=== PATIENT | male | born 1965 | race Caucasian/White ===

== ENCOUNTER 2023-12-22 20:19 | Observation (INO) | payer OTHER, SELFPAY ==
[2023-12-22] VITALS (7 sets, daily range): BP systolic 104–142; BP diastolic 54–112; BMI 37.2; BMI 35.9
[2023-12-22 16:44] LABS: Glucose - Point of Care > 600 mg/dl (70-99)
[2023-12-22 16:52] LABS: % Basophils 0.4 % (0-2); % Eosinophils 1.2 % (0-6); % Immature Granulocytes 0.3 % (0-0.5); % Lymphocytes 26.6 % (20.5-51.1); % Monocytes 5.5 % (1.7-9.3); Absolute Eosinophils 0.1 10^3/uL (0-0.7); Absolute Lymphocytes 2.8 10^3/uL (1.2-3.4); Absolute Monocytes 0.6 10^3/uL (0.1-0.6); Absolute Neutrophils 6.8 10^3/uL (1.4-6.5); Hematocrit 46.1 % (39.0-52.0); Hemoglobin 15.4 g/dL (13.0-18.0); Mean Corp Hgb Conc. 33.4 g/dL (33.0-37.0); Mean Corpuscular Hgb 30.1 pg (27.0-31.0); Mean Corpuscular Volume 90.2 fL (80.0-94.0); Mean Platelet Volume 11.4 fL (7.4-10.4); Nucleated Red Blood Cells % 0 % (-); Platelet Count 292 10^3/uL (130-400); Red Blood Cell Count 5.11 10^6/uL (4.70-6.10); Red Cell Dist. Width 13.9 % (11.5-14.5); White Blood Cell Count 10.3 10^3/uL (4.8-10.8)
[2023-12-22 16:54] LABS: Urine Albumin Trace (Neg - Trace); Urine Bilirubin Negative (Negative); Urine Character Clear (Clear); Urine Color Yellow; Urine Glucose 3+ (Negative); Urine Ketone 2+ (Negative); Urine Leukocyte Negative (Negative); Urine Nitrite Negative (Negative); Urine Occult Blood Negative (Negative); Urine Urobilinogen Negative (Neg - 1+)
--- NOTE | 2023-12-22 17:03 | ED.GENMED ---
History of Present Illness
General
Chief Complaint: Weakness
Source: patient
Exam Limitations: none
Time Seen by Provider: 12/22/23 16:43
Nursing documentation reviewed up to this point in time: agreed with
Travel History
Have you had any contact with someone who has COVID-19?: No
Do you have any symptoms of coronavirus? Fever > 100 degrees, chills, cough, shortness of breath, sore throat, loss of taste or smell, muscle aches, or headache?: No
History of Present Illness
History of Present Illness:
58-year-old male with past medical history of fgd-[id number] diabetes high cholesterol smoker COPD presents to the ER for evaluation. For the past several days since Sunday he has had a headache dry mouth increased urination feels dizzy.
He did vomit yesterday. Triage note also that he has not had a bowel movement in 3 days. He is a type II diabetic and does not check his sugars.
Review of Systems
Review of Systems
Allergies reviewed?: Yes
All Other Systems: ROS reviewed and negative except as documented in HPI and ROS
Constitutional: Reports no symptoms; Denies fever, fatigue or chills
Respiratory: Reports no symptoms
Cardiac: Reports no symptoms
ABD/GI: Reports nausea and vomiting
Musculoskeletal: Reports no symptoms
Skin: Reports no symptoms
Neurological: Reports headache
Endocrine: Reports polyuria and polydipsia
Psychiatric: Reports no symptoms
Phy Exam
General Physical Exam
General Presentation: no apparent distress
General age: appears stated age
General Skin: dry
General Habitus: normal
General Mental: alert
Cardiovascular Exam
Cardiovascular Exam: regular rate/rhythm, no murmur and normal peripheral pulses
Pulmonary Exam
Pulmonary Exam: lungs clear and no respiratory distress
Neurological Exam
Neurological Exam: alert and oriented x3
Musculoskeletal Exam
Musculoskeletal Exam: full ROM
Skin Exam
Skin Exam: normal color and warm/dry
Psychiatric Exam
Psychiatric Exam: normal mood/affect
Course
Orders/Labs/Results
Orders:
Orders
12/22/23 16:31
EKG [Electrocardiogram (*1)] Urgent
Reason for Study: Fatigue / Weakness
12/22/23 16:32
EKG- Treatment ONCE
12/22/23 16:44
B-Hydroxybutyrate Urgent
Comment: ADD ON
COVID-19 Antigen Urgent
Source: Nasal Swab
Complete Blood Count/With Diff Urgent
Comprehensive Metabolic Panel Urgent
Urinalysis Reflex To Culture Urgent
Date Specimen was Collected: 12/22/23
Time Specimen was Collected: 16:38
Influenza A+B Rapid Molecular Urgent
ALDAIR Source: Nasal Swab
Specimen Description:
12/22/23 17:47
0.9% Sodium Chloride 1000 ml [Nss] 1,000 ml IV BOLUS
12/22/23 17:51
Add On- LAB Urgent
Tests Added?: betahydroxybutrate
12/22/23 18:07
Insulin Aspart [NOVOLOG vial] 10 units SC NOW STA
Abnormal Lab Results
12/22/23 12/22/23
16:42 16:44
MPV 11.4 H fL
(7.4-10.4)
Absolute Neuts (auto) 6.8 H 10^3/uL
(1.4-6.5)
Sodium 129 L mmol/L
(135-145)
Potassium 5.2 H mmol/L
(3.5-5.1)
Chloride 96 L mmol/L
(98-107)
Glucose 892 H* mg/dl
(70-99)
Alkaline Phosphatase 142 H U/L
(38-126)
Urine Ketones 2+ A
(Negative)
Urine Glucose 3+ A
(Negative)
POC Glucose > 600 H* mg/dl
(70-99)
12/22/23 16:44
12/22/23 16:44
Vital Signs
Initial and Last Documented VS:
Initial Vital Signs
Temp Pulse Resp Pulse Ox
97.9 F 95 16 99
12/22/23 16:11 12/22/23 16:11 12/22/23 16:11 12/22/23 16:11
Last Documented Vital Signs
Temp Pulse Resp BP Pulse Ox
97.9 F 84 18 104/92 94
12/22/23 16:11 12/22/23 17:30 12/22/23 17:30 12/22/23 17:00 12/22/23 17:30
Chore Worker consulted with Physician
Chore Worker consulted with physician?: Yes
Name of Physician Consulted: kiara
MDM/Problems Addressed
Differential Diagnosis Includes:
not limited to: Hyperglycemia, dehydration electrolyte abnormality
MDM/Problems Addressed:
Patient is a type II diabetic who presents today for generalized weakness increased thirst headache dizzy increased urination did vomit yesterday. Patient presents with an elevated glucose of 892. Sodium 129 however corrected 142. Gap is 11.
Patient denies any recent fever chills patient presents awake alert no acute distress. Case was ED physician normal saline fluids ordered 10 units of subcu nodule and insulin ordered. pt will require admission.
Chronic conditions affecting care:
IDDM (currently on glimepiride does not check sugars )
*Pulse Oximetry
Patient hypoxic: no
*EKG
Interpreted by ED Provider?: Yes
Interpretation: normal
Comparison EKG: no comparison EKG present
Heart Rate: 80
Rate: normal
Rhythm: sinus
Ischemia: no ischemia
*Critical Care Note
Total Time (30-74mins, 75-104mins- exclusive of procedures): Not Applicable
ED Attending Note
-
Portions of this chart may have been created with voice recognition software.� Occasional wrong word or��sound alike� substitutions may have occurred due to the inherent limitations of voice recognition software.
Discharge Plan
Departure
Patient Disposition: Admit
Date of Disposition: 12/22/23
Time of Disposition: 18:19
Admit to: Med/Surg
Admit to doctor: hospitalist
Presentation/result/management discussed w/ accepting MD/DO: Hospitalist
Patient with high blood pressure during this ER visit?: No
Condition: Fair
Covid-19: Not Applicable
Discharge Problem:
Acute hyperglycemia
Prescriptions:
No Action
atorvastatin 20 mg Tablet
20 mg PO DAILY
meloxicam 15 mg Tablet
15 mg PO DAILY
glimepiride 2 mg Tablet
2 mg PO DAILY
aspirin 81 mg Tablet,Chewable
81 mg PO DAILY
alfuzosin 10 mg Tablet Extended Release 24 Hr
10 mg PO DAILY
Referrals:
Chu Hitchcock PA-C [Family Provider] -
Interventions
Interventions:
*Risk Screen - Suicide Last Done: 12/22/23 16:11
*General Assessment Last Done: 12/22/23 16:26
*Neglect/Abuse Screening Last Done: 12/22/23 16:11
ED- Fall Risk Assessment Last Done: 12/22/23 16:31
*ED COVID-19 Vaccine History Last Done: 12/22/23 16:11
ED- Cardiac Assessment Last Done: 12/22/23 16:49
ED- Neurological Assessment Last Done: 12/22/23 16:49
ED- Pulmonary Assessment Last Done: 12/22/23 16:49
[2023-12-22 17:08] LABS: ALT (SGPT) 32 U/L (0-50); AST (SGOT) 23 U/L (17-59); Alkaline Phosphatase 142 U/L (38-126); Blood Urea Nitrogen 20 mg/dl (9-20); COVID-19 Antigen Negative (Negative); Calcium 9.6 mg/dl (8.4-10.2); Carbon Dioxide 22 mmol/L (22-30); Chloride 96 mmol/L (98-107); Estimated Creatinine Clearance > 125 ml/min; Potassium 5.2 mmol/L (3.5-5.1); Sodium 129 mmol/L (135-145); Total Bilirubin 0.8 mg/dl (0.2-1.3); eGFR > 60.00
[2023-12-22 17:48] LABS: Glucose 892 mg/dl (70-99)
[2023-12-22] MEDS: NSS 1000 IV ×2 (17:55→20:16)
[2023-12-22] MEDS: NOVOLOG vial 10 UNITS SC (18:25)
[2023-12-22 18:28] LABS: B-Hydroxybutyrate 1.91 mmol/L (0.02-0.27)
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
[2023-12-22 20:01] LABS: Glucose - Point of Care 508 mg/dl (70-99)
[2023-12-22 20:21] LABS: Venous Blood Gas B.E. 0.7 mmol/L (-4 to +4); Venous Blood Gas HCO3 27.5 mmol/L (22-27); Venous Blood Gas O2 Sat % 67.1 %; Venous Blood Gas pCO2 51 mmHg (35-48); Venous Blood Gas pH 7.34 (7.32-7.43); Venous Blood Gas pO2 37 mmHg (30-50)
[2023-12-22 20:39] LABS: Blood Urea Nitrogen 19 mg/dl (9-20); Calcium 9.7 mg/dl (8.4-10.2); Carbon Dioxide 22 mmol/L (22-30); Chloride 99 mmol/L (98-107); Estimated Creatinine Clearance > 125 ml/min; Glucose 569 mg/dl (70-99); Magnesium 2.3 mg/dl (1.6-2.3); Potassium 4.1 mmol/L (3.5-5.1); Sodium 132 mmol/L (135-145); eGFR > 60.00
[2023-12-22 20:40] LABS: Osmolality Serum 313 mOsm/kg (275-300)
[2023-12-22 21:06] LABS: TSH 0.81 uIU/ml (0.47-4.68)
[2023-12-22 21:11] LABS: Glucose - Point of Care 542 mg/dl (70-99)
[2023-12-22 21:50] LABS: Glucose 495 mg/dl (70-99)
[2023-12-22] MEDS: KCL 20 MEQ PO (22:20)
[2023-12-22] MEDS: NOVOLOG FLEXPEN 12 UNITS SC (22:21)
[2023-12-22] MEDS: TUMS 1 TABLET PO (22:40)
[2023-12-23] MEDS: NSS 1000 IV ×3 (00:32→07:58)
[2023-12-23 00:39] LABS: Glucose - Point of Care 350 mg/dl (70-99)
[2023-12-23] MEDS: LANTUS 0.149999999999999994 UNITS SC (00:41)
[2023-12-23 01:14] LABS: Blood Urea Nitrogen 16 mg/dl (9-20); Calcium 8.9 mg/dl (8.4-10.2); Carbon Dioxide 24 mmol/L (22-30); Chloride 105 mmol/L (98-107); Estimated Creatinine Clearance > 125 ml/min; Glucose 349 mg/dl (70-99); Potassium 3.8 mmol/L (3.5-5.1); Sodium 132 mmol/L (135-145); eGFR > 60.00
[2023-12-23] MEDS: NOVOLOG FLEXPEN 10 UNITS SC (01:24)
[2023-12-23 03:25] VITALS: BP 124/76
[2023-12-23 03:46] LABS: Glucose - Point of Care 277 mg/dl (70-99)
[2023-12-23 06:00] VITALS: BMI 36.4
[2023-12-23 06:03] LABS: Hematocrit 41.3 % (39.0-52.0); Hemoglobin 14.2 g/dL (13.0-18.0); Mean Corp Hgb Conc. 34.4 g/dL (33.0-37.0); Mean Corpuscular Hgb 30.7 pg (27.0-31.0); Mean Corpuscular Volume 89.4 fL (80.0-94.0); Mean Platelet Volume 11.1 fL (7.4-10.4); Platelet Count 258 10^3/uL (130-400); Red Blood Cell Count 4.62 10^6/uL (4.70-6.10); Red Cell Dist. Width 13.7 % (11.5-14.5); White Blood Cell Count 10.1 10^3/uL (4.8-10.8)
[2023-12-23] MEDS: OCEAN, SALINE MIST 1 SPRAYS NASAL (06:22)
[2023-12-23 06:26] LABS: ALT (SGPT) 26 U/L (0-50); AST (SGOT) 22 U/L (17-59); Albumin 3.6 g/dl (3.5-5.0); Alkaline Phosphatase 112 U/L (38-126); Blood Urea Nitrogen 14 mg/dl (9-20); Calcium 9.3 mg/dl (8.4-10.2); Carbon Dioxide 26 mmol/L (22-30); Chloride 103 mmol/L (98-107); Estimated Creatinine Clearance > 125 ml/min; Glucose 248 mg/dl (70-99); HDL Cholesterol 29 mg/dl; Potassium 4.3 mmol/L (3.5-5.1); Sodium 138 mmol/L (135-145); Total Bilirubin 0.6 mg/dl (0.2-1.3); Total Cholesterol 149 mg/dl (50-199); Total Protein 6.4 g/dl (6.3-8.2); eGFR > 60.00
[2023-12-23 06:35] LABS: Triglyceride 465 mg/dl (10-149)
[2023-12-23 06:59] LABS: LDL Cholesterol, Direct 72 mg/dl
[2023-12-23 07:00] VITALS: BP 116/66
[2023-12-23 08:05] LABS: Glucose - Point of Care 345 mg/dl (70-99)
[2023-12-23] MEDS: LOW STRENGTH ASPIRIN 81 MG PO (08:08)
[2023-12-23] MEDS: FLOMAX 0.400000000000000022 MG PO (08:08)
[2023-12-23] MEDS: LIPITOR 20 MG PO (08:10)
[2023-12-23] MEDS: NOVOLOG FLEXPEN-MODERATE RESISTANCE 7 UNITS SC ×2 (08:13→12:15)
[2023-12-23 08:42] LABS: Glycohemoglobin (HgbA1c) 16.9 % (4.0-5.6)
--- NOTE | 2023-12-23 10:26 | W.PN.HOSP.TC ---
Today's Communication/Plan
-
started insulin
nurse educator
Cardio consult
follow BMP
check Troponin
Assessment / Plan
Assessment / Plan
IMPRESSION:The patient is a 58-year-old male with PMH significant for NIDDM, who was taking Glimepiride in the past, never been on insulin, presents to ED due to several days of headache, dry mouth, increased urinary frequency, and dizziness. He
vomited yesterday once that he attributes to 'mixing foods'. He also has constipation x 3 days. Glucose in ED was 892. He is also c/o sore dry throat that has worsened over the past 1 week, and he notes he is currently getting worked up outpatient
for multiple symptoms. He smokes 1 to 1.5 packs cigarettes daily, and is pending an outpatient CT scan chest and CT neck. Unclear if he's seen ENT. He denies fever, no MCKEON, no LOC, no current vomiting, no dysuria. He says that he use to have acute
drops in his blood sugars as low as 30.
ED txt: 10 units SQ insulin, 1 L NS
#Hyperglycemia, uncontrolled type 2 DM, concern for HHS. Ketonuria, 3+ glucose, corrected Na is normal 142; Beta hydroxybutyrate 1.91, AG 11, CO2 22, Glucose came down to 508 after 10 u SQ insulin. No history of insulin use.
-admit tele
-was receiving IVF NS at 250 mL per hour, pt now complaining of SOB with CP. Will stop IVF and follow BMP
-HgA1C 16.9!!!!!
-TSH 0.81
-nurse educator consult
chest pain with sob at rest
sob improved when pt sat up
he has been receiving NS at 250 cc/hr, stopped IVF and chest pain with sob has resolved
EKG - normal
Troponin ordered, to be done shortly. Pt with significant risk factors for CAD
Hyponatremia better with improved glu control
129-->132-->138
# Pharyngeal erythema/sore
-discuss outpatient vs inpatient management in the morning pending glucose control
-will likely need ENT consultation OP if not already set up by PCP (he has CT neck and chest pending OP per patient)
#Tobacco abuse-1 to 1.5 ppd for 44 years
-smoking cessation
-he declines nicotine patch at this time
#BPH
-Alfuzosin
#HLD
-Atorvastatin
DVT proph-Lovenox
Full Code
will change status to full admit
Anticipated Discharge: 24 - 48 hours
Subjective/Interval History
-
Date of Service: December 23, 2023
Pt expresses sob with substernal heaviness
Objective Data
-
Labs:
Laboratory Results
12/23/23 12/23/23 12/23/23
00:48 05:39 11:00
WBC 10.1
Hgb 14.2
Hct 41.3
Plt Count 258
Sodium 132 L 138 Pending
Potassium 3.8 4.3 Pending
Chloride 105 103 Pending
Carbon Dioxide 24 26 Pending
BUN 16 14 Pending
Creatinine 0.7 0.6 L Pending
Glucose 349 H 248 H Pending
Calcium 8.9 9.3 Pending
Total Bilirubin 0.6
AST 22
ALT 26
Alkaline Phosphatase 112
Vital Signs:
Vital Signs
Temp Pulse Resp BP Pulse Ox
98.4 F 65 16 116/66 97
12/23/23 07:00 12/23/23 07:00 12/23/23 07:00 12/23/23 07:00 12/23/23 07:00
I&O
12/22/23 12/23/23 12/24/23
06:59 06:59 06:59
Intake Total 480 / 480
Output Total 400 / 400
Balance -400 / -400 480 / 480
Review of Systems
-
History Source: Patient and Coordinated Provider
Constitutional: Denies Fever
EENT: Reports No Symptoms Reported
Respiratory: Reports Trouble Breathing; Denies Wheezing
Cardiac: Reports Chest Pain (substernal heaviness)
Abdomen/GI: Reports No Symptoms
Physical Exam
-
General: Well Developed, Well Nourished, No Apparent Distress and Obese (very large)
HEENT: Normocephalic, Atraumatic and Moist Mucous Membranes
Respiratory: Clear to Auscultation (totally clear); Negative Wheezes, Rales or Rhonchi
Cardiac: Regular Rhythm and S1/S2
GI: Soft, Nontender and Nondistended
Musculoskeletal: No Clubbing, No Cyanosis and No Edema
Skin: Warm and Dry
Neuro: Awake, Alert and Oriented
Psych: Calm
[2023-12-23 11:00] VITALS: BP 154/76
[2023-12-23 11:21] LABS: Blood Urea Nitrogen 14 mg/dl (9-20); Calcium 9.2 mg/dl (8.4-10.2); Carbon Dioxide 22 mmol/L (22-30); Chloride 107 mmol/L (98-107); Estimated Creatinine Clearance > 125 ml/min; Glucose 333 mg/dl (70-99); Potassium 4.4 mmol/L (3.5-5.1); Sodium 133 mmol/L (135-145); eGFR > 60.00
[2023-12-23 11:27] LABS: Troponin I < 0.012 ng/ml
[2023-12-23 11:37] LABS: Glucose - Point of Care 307 mg/dl (70-99)
--- NOTE | 2023-12-23 14:45 | CON.CAR ---
Consultation
Consultation Request
Date/Time Consultation Requested: 12/23/2023 at 1050 am
Date/Time Consultation Performed: 12/23/2023 at 1130 am
Requesting Provider: Abhilash Matias
Performing Provider: Varinder Farley DO
Reason for Consultation: SOB, CP
Medical History
-
Chief Complaint: Thirst, anorexia, polyuria, dizziness
History of Present Illness:
Patient is a 58-year-old male with a past medical history significant for diabetes mellitus type 2, tobacco use disorder (1 pack/day greater than 40 years), obesity, hypercholesterolemia, chronic pain who presents due to headache, dry mouth,
polyuria, and dizziness. Patient was admitted noted to have a glucose of 892 with an A1c greater than 16. Patient treated appropriately for hyperglycemia. Patient reported nasal congestion and sore throat which moved to his chest causing mild
shortness of breath and chest tightness while laying flat. He notes that while sitting up or with activity he does not experience any of the symptoms. Patient denies any chest pain shortness of breath lightheadedness, dizziness, near-syncope,
syncope, PND, orthopnea, edema or weakness. Patient denies any chest pain or shortness of breath with activity or exertion. Patient reports that the tightness he experiences is improved with sitting up and worse while laying flat. Unknown family
history due to adoption. Patient is a chronic active tobacco user 1 pack/day greater than 40 years, former alcohol, no illicits. Patient denies any prior cardiovascular evaluation or testing.
Past Medical History
Past Medical History: Hypercholesterolemia and NIDDM
Past Surgical History: Other (Orthopedic; left knee repair, hernia repair)
Social History
Tobacco: Smoker (1 pack/day greater than 40 years)
Alcohol: Former
Drug: None
Personal: Partner
Living: With Family
Family History
Family History: Adopted
Allergies / Home Medications
Allergy/AdvReac Type Severity Reaction Status Date / Time
Penicillins Allergy Rash Verified 12/22/23 16:47
Medication Instructions Recorded Confirmed Type
alfuzosin 10 mg tablet,extended 10 mg PO DAILY INFLAMMATION 12/22/23 12/22/23 History
release 24 hr
aspirin 81 mg chewable tablet 81 mg PO DAILY Blood Clot 12/22/23 12/22/23 History
Prevention/Tx
atorvastatin 20 mg tablet 20 mg PO DAILY High Cholesterol 12/22/23 12/22/23 History
glimepiride 2 mg tablet 2 mg PO DAILY Diabetes 12/22/23 12/22/23 History
meloxicam 15 mg tablet 15 mg PO DAILY Pain 12/22/23 12/22/23 History
Review of Systems
-
History Source: Patient
All other systems: Negative unless noted
EENT: Other (Nasal congestion)
Respiratory: Cough and Trouble Breathing
Cardiac: Chest Pain (Laying flat, with congestion and cough)
Abdomen/GI: No Symptoms
: No Symptoms
Musculoskeletal: No Symptoms
Skin: No Symptoms
Neurological: No Symptoms
Endocrine: No Symptoms
Hematologic/Lymphatic: No Symptoms
Physical Exam
Vital Signs
Temp Pulse Resp BP Pulse Ox
97.9 F 70 16 154/76 95
12/23/23 11:00 12/23/23 11:00 12/23/23 11:00 12/23/23 11:00 12/23/23 11:00
Lab Results
12/23/23 05:39
12/23/23 10:48
Troponin I < 0.012 ng/ml 12/23/23 10:48
Physical Exam
General: Well Developed, Well Nourished, No Apparent Distress, Comfortable and Other (Obese)
HEENT: Normocephalic, Anicteric and Moist Mucous Membranes
Respiratory: Rhonchi and Non Labored Respirations
Cardiac: S1/S2, Regular Rhythm and Other (No murmur, rub, or gallop)
GI: Soft, Non Tender, Non Distended and Normal Bowel Sounds
Musculoskeletal: No Clubbing, No Cyanosis and No Edema
Skin: Warm and Dry
Neuro: AO x 3 and Nonfocal/Grossly Intact
Psych: Calm
Impression / Plan
-
PCP: Chu Hitchcock
Skip Tender: None
Assessment:
*Chest pain, atypical, no further episodes
� Troponin negative x 1, EKG sinus rhythm without ST-T abnormality
� No prior cardiovascular evaluation
� Risk factors include obesity, dyslipidemia, tobacco use disorder
� Chest pain (tightness, substernal) laying flat with nasal congestion, single episode while admitted; no chest pain with activity or exertion
*Diabetes mellitus type 2 without insulin, poorly controlled
� A1c greater than 16, admission glucose greater than 800
� On glimepiride only
*Mixed dyslipidemia, on statin therapy
� Unclear lipid profile
*Tobacco use disorder, continuous
� 1 pack/day greater than 40 years
*Arthritis, stable
Recommendations:
� 2D echocardiogram to assess cardiac size, shape, function, and valvular anatomy in the setting of atypical type chest pain
� Trend troponin x 3 every 6 hours
� Lipid profile to reassess overall cardiovascular status; remains on atorvastatin 20 mg daily
� Diabetes and chronic medical condition management and treatment per primary service
� Complete tobacco cessation
� Would avoid/discontinue NSAID such as meloxicam to avoid cardiovascular risk
� Two-view chest x-ray in the setting of cough, shortness of breath
� Repeat EKG in a.m.
Data Reviewed
-
EKG: Tracing Personally Visualized and interpreted (Sinus rhythm no ST-T abnormality)
Labs: Labs Reviewed by me
Total Time Spent with Patient (in minutes): 55
[2023-12-23 15:00] VITALS: BP 142/66
--- NOTE | 2023-12-23 16:17 | CM ---
IA completed.
Patient lives with girlfriend in a 2 story home with 4 steps to enter.
Patient independent prior to admission.
Patient has a cane.
Patient drives and works.
Observation form completed.
no hx VN.
PCP: Svetlana sharma
Pharmacy: [facility]
Plan: home no needsN
[2023-12-23 17:42] LABS: Glucose - Point of Care 291 mg/dl (70-99)
[2023-12-23] MEDS: NOVOLOG FLEXPEN-MODERATE RESISTANCE 5 UNITS SC (18:14)
[2023-12-23] MEDS: LOVENOX 40 MG SC (18:14)
[2023-12-23 19:20] VITALS: BP 120/72
[2023-12-23 19:31] LABS: Troponin I < 0.012 ng/ml
[2023-12-23] MEDS: TUMS 1 TABLET PO (20:27)
[2023-12-23 21:48] LABS: Glucose - Point of Care 266 mg/dl (70-99)
[2023-12-23] MEDS: LANTUS 0.200000000000000011 UNITS SC (23:04)
[2023-12-23 23:29] VITALS: BP 121/62
[2023-12-23 23:58] LABS: Troponin I < 0.012 ng/ml
[2023-12-24 03:15] VITALS: BP 151/60
[2023-12-24 06:00] VITALS: BMI 36.8
[2023-12-24 07:18] LABS: Glucose - Point of Care 319 mg/dl (70-99)
[2023-12-24 07:23] LABS: Troponin I < 0.012 ng/ml
[2023-12-24 07:43] VITALS: BP 126/67
[2023-12-24] MEDS: LOW STRENGTH ASPIRIN 81 MG PO (07:49)
[2023-12-24] MEDS: FLOMAX 0.400000000000000022 MG PO (07:49)
[2023-12-24] MEDS: LIPITOR 20 MG PO (07:49)
[2023-12-24] MEDS: NOVOLOG FLEXPEN-MODERATE RESISTANCE 7 UNITS SC (07:50)
--- NOTE | 2023-12-24 07:55 | W.PN.HOSP.TC ---
Today's Communication/Plan
-
Increase insulin Lantus and add NovoLog. Monitor blood sugars.
Assessment / Plan
Assessment / Plan
Physical exam:
General: Well Developed, Well Nourished and No Apparent Distress
HEENT: Normocephalic, Atraumatic and Moist Mucous Membranes
Respiratory: Clear to Auscultation; Negative Wheezes, Rales or Rhonchi
Cardiac: Regular Rhythm and S1/S2
GI: Soft, Nontender and Nondistended
Musculoskeletal: No Clubbing, No Cyanosis and No Edema
Neuro: Awake, Alert and Oriented
Psych: Calm
A/P:
IMPRESSION:The patient is a 58-year-old male with PMH significant for NIDDM, who was taking Glimepiride in the past, never been on insulin, presents to ED due to several days of headache, dry mouth, increased urinary frequency, and dizziness. He
vomited yesterday once that he attributes to 'mixing foods'. He also has constipation x 3 days. Glucose in ED was 892. He is also c/o sore dry throat that has worsened over the past 1 week, and he notes he is currently getting worked up outpatient
for multiple symptoms. He smokes 1 to 1.5 packs cigarettes daily, and is pending an outpatient CT scan chest and CT neck. Unclear if he's seen ENT. He denies fever, no MCKEON, no LOC, no current vomiting, no dysuria. He says that he use to have acute
drops in his blood sugars as low as 30.
ED txt: 10 units SQ insulin, 1 L NS
#Hyperglycemia, uncontrolled type 2 DM, concern for HHS. Ketonuria, 3+ glucose, corrected Na is normal 142; Beta hydroxybutyrate 1.91, AG 11, CO2 22, Glucose came down to 508 after 10 u SQ insulin. No history of insulin use.
-Off IV fluids
-HgA1C 16.9!!!!!
-TSH 0.81
-water conservation specialist consult also diabetes ONLINE MERCHANDISER evaluation today
-His blood sugars are still elevated today on 12/23 and they are as high as 285 and 319 so they need to be better controlled before discharge. Discussed with patient the need for insulin upon discharge and he is agreeable although not convinced
which ones to take at home yet so we discussed several options and will revisit again tomorrow.
-Added NovoLog 10 units of insulin before each meal
-Increase Lantus 20 to 25 units today
-Continue insulin sliding scale
-Monitor blood sugars over the next 24 hours and if improving plan to discharge over the next 24 hours
chest pain with sob at rest
sob improved when pt sat up
he has been receiving NS at 250 cc/hr, stopped IVF and chest pain with sob has resolved
EKG - normal
Troponin ordered, to be done shortly. Pt with significant risk factors for CAD
Discussed with cardiology today on 12/23 and they will sign off and continue to monitor as outpatient
Hyponatremia better with improved glu control
129-->132-->138--> sodium back down to 133 but blood sugars also still elevated
# Pharyngeal erythema/sore
-OP ENT consultation if not already set up by PCP (he has CT neck and chest pending OP per patient)
#Tobacco abuse-1 to 1.5 ppd for 44 years
-smoking cessation
-he declines nicotine patch at this time
#BPH
-Alfuzosin
#HLD
-Atorvastatin
DVT proph-Lovenox
Full Code
Anticipated Discharge: Within 24 hours
Subjective/Interval History
-
Date of Service: December 24, 2023
Patient denies any chest pain. Patient blood sugars are still elevated although somewhat improved.
Objective Data
-
Labs:
Laboratory Results
12/24/23
06:50
Sodium Pending
Potassium Pending
Chloride Pending
Carbon Dioxide Pending
BUN Pending
Creatinine Pending
Glucose Pending
Calcium Pending
Vital Signs:
Vital Signs
Temp Pulse Resp BP Pulse Ox
97.6 F 82 16 126/67 94
12/24/23 07:43 12/24/23 07:43 12/24/23 07:43 12/24/23 07:43 12/24/23 07:43
I&O
12/23/23 12/24/23 12/25/23
06:59 06:59 06:59
Intake Total 1080 / 1080
Output Total 400 / 400
Balance -400 / -400 1080 / 1080
[2023-12-24 08:09] LABS: Blood Urea Nitrogen 13 mg/dl (9-20); Calcium 9.5 mg/dl (8.4-10.2); Carbon Dioxide 21 mmol/L (22-30); Chloride 103 mmol/L (98-107); Estimated Creatinine Clearance > 125 ml/min; Glucose 286 mg/dl (70-99); HDL Cholesterol 31 mg/dl; Potassium 4.6 mmol/L (3.5-5.1); Sodium 133 mmol/L (135-145); Total Cholesterol 157 mg/dl (50-199); eGFR > 60.00
[2023-12-24 08:19] LABS: Triglyceride 462 mg/dl (10-149)
[2023-12-24 08:40] LABS: LDL Cholesterol, Direct 80 mg/dl
--- NOTE | 2023-12-24 11:04 | PN.DE.MGMTRT ---
Insulin Management
- -
12/24/2023: Diabetes Management Consult
58-year-old male who p/w headache, dry mouth, polyuria, and dizziness.
PMH includes: HTN, HLD, Obesity, tobacco use disorder (1 pack/day greater than 40 years), chronic pain and T2DM. 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
Glucose on admission was 892, A1C 16.9%, Cr 0.5, eGFR >60. States that he previously had a glucose monitor but he is not sure if he still has it.
Glucose has remained elevated, FBG 219 this AM, premeal 291 to 319, receiving 5-7 units of corrective insulin.
Current regimen includes Lantus 20 units and corrective insulin only.
Will start NovoLog AC- 10 units, Metformin 500mg BID and increase Lantus to 25 units @ HS. Cont low corrective with meals
Pt was offered a new meter, declined stating that he could not afford the supplies and that his GF has already purchased a new glucose meter from [employer] and he is comfortable with monitor use at home
Pt will need insulin instructions before discharge
Diabetes History
- -
Type of Diabetes: 2 requiring insulin
Pre-Admission Diabetes Regimen
12/23/23 12/24/23
10:48 06:50
Creatinine 0.5 L 0.5 L
Lab Results
Hemoglobin A1c 16.9 % (4.0-5.6) H 12/23/23 05:39
Insulin Pump Settings
IP Diabetes Regimen
12/23/23 12/23/23 12/23/23
10:48 11:35 17:40
Glucose 333 H
POC Glucose 307 H 291 H
12/23/23 12/24/23 12/24/23
21:47 06:50 07:16
Glucose 286 H
POC Glucose 266 H 319 H
Meal type: Lunch
Meal type: Breakfast
Amount consumed: 100%
Amount consumed: 100%
Patient Education
[2023-12-24 11:10] VITALS: BP 121/66
--- NOTE | 2023-12-24 11:33 | W.PN.CARDCBS ---
Addendum entered and electronically signed by Madison Brennan PA-C 12/24/23 14:54:
Called PCP to obtain copy of stress test, but they do not have any record of stress test. Office is going to check again and call me back to be sure.
Original Note:
Today's Communication / Plan
-
Sign off
Stable cardiology status for discharge
Impression / Plan
-
PCP: Chu Hitchcock
Statue Maker: None
Assessment:
Chest pain, atypical, no further episodes
Diabetes mellitus type 2 without insulin, poorly controlled
Mixed dyslipidemia, on statin therapy
Tobacco use disorder, continuous
Arthritis, stable
Recommendations:
No further chest pain
Troponins have been serially negative
EKG okay
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
No further recommendations
Stable cardiology status for discharge
Will sign off
Discussed with primary service
Progress Note - Statue Maker
Subjective
Date of Service: December 24, 2023
No complaints
Objective
Labs:
12/23/23 05:39
12/24/23 06:50
Labs
Hgb 14.2 g/dL (13.0-18.0) 12/23/23 05:39
Hct 41.3 % (39.0-52.0) 12/23/23 05:39
Plt Count 258 10^3/uL (130-400) 12/23/23 05:39
Sodium 133 mmol/L (135-145) L 12/24/23 06:50
Potassium 4.6 mmol/L (3.5-5.1) 12/24/23 06:50
BUN 13 mg/dl (9-20) 12/24/23 06:50
Creatinine 0.5 mg/dL (0.7-1.3) L 12/24/23 06:50
Glucose 286 mg/dl (70-99) H 12/24/23 06:50
Troponins
12/23/23 12/23/23 12/23/23
10:48 17:03 19:02
Troponin I < 0.012 Cancelled < 0.012
12/23/23 12/24/23
23:19 06:50
Troponin I < 0.012 < 0.012
Vital Signs and I&O:
Vital Signs
Temp Pulse Resp BP Pulse Ox
98.5 F 83 16 121/66 100
12/24/23 11:10 12/24/23 11:10 12/24/23 11:10 12/24/23 11:10 12/24/23 11:10
Vital Signs
Temp Pulse Resp BP Pulse Ox
98.5 F 83 16 121/66 100
12/24/23 11:10 12/24/23 11:10 12/24/23 11:10 12/24/23 11:10 12/24/23 11:10
Intake & Output
12/22/23 12/23/23 12/24/23 12/25/23
06:59 06:59 06:59 06:59
Intake Total 1080 / 1080
Output Total 400 / 400
Balance -400 / -400 1080 / 1080
Physical Exam
Physical Exam
General: Well developed, well nourished in NAD.
Neck: Supple, no JVD, HJR, carotids +2 B/L, no bruits bilaterally.
Heart: Non displaced PMI, RRR, no murmurs, No S3, S4, no rubs.
Lungs: Scattered rhonchi at the bases
Extremities: No clubbing, cyanosis or edema bilaterally.
Neuro: Grossly nonfocal, awake, alert and oriented x3.
--- NOTE | 2023-12-24 12:05 | CARDSERVDEF ---
Echocardiogram with Definity completed after protocol screening completed. Allergies verified.
Patent IV site: _R hand____
IV site flushed with 0.9% NaCl pre and post administration.
Diluted bolus method utilized to enhance visualization of ventricular lovelace.
Total volume given: __2__ mL
Patient tolerated all procedures well without complications.
[2023-12-24] MEDS: NOVOLOG FLEXPEN 10 UNITS SC ×2 (12:39→17:48)
[2023-12-24] MEDS: NOVOLOG FLEXPEN-MODERATE RESISTANCE 5 UNITS SC (12:41)
[2023-12-24 12:42] LABS: Glucose - Point of Care 285 mg/dl (70-99)
[2023-12-24 15:26] LABS: Glucose - Point of Care 231 mg/dl (70-99)
[2023-12-24 15:27] VITALS: BP 125/75
[2023-12-24 17:01] LABS: Glucose - Point of Care 222 mg/dl (70-99)
[2023-12-24] MEDS: NOVOLOG FLEXPEN-MODERATE RESISTANCE 3 UNITS SC (17:48)
[2023-12-24] MEDS: GLUCOPHAGE 500 MG PO (17:49)
[2023-12-24] MEDS: LOVENOX 40 MG SC (17:49)
[2023-12-24 19:12] VITALS: BP 118/62
[2023-12-24 21:48] LABS: Glucose - Point of Care 193 mg/dl (70-99)
[2023-12-24] MEDS: LANTUS 0.25 UNITS SC (22:00)
[2023-12-24 23:00] VITALS: BP 121/57
[2023-12-25 04:40] VITALS: BP 118/52
[2023-12-25 07:10] VITALS: BP 118/56
[2023-12-25 07:13] LABS: Glucose - Point of Care 213 mg/dl (70-99)
[2023-12-25] MEDS: NOVOLOG FLEXPEN 14 UNITS SC ×2 (07:38→12:18)
[2023-12-25] MEDS: NOVOLOG FLEXPEN-MODERATE RESISTANCE 3 UNITS SC ×2 (07:38→12:18)
[2023-12-25] MEDS: GLUCOPHAGE 500 MG PO (07:39)
[2023-12-25] MEDS: LOW STRENGTH ASPIRIN 81 MG PO (07:39)
[2023-12-25] MEDS: LIPITOR 20 MG PO (07:39)
[2023-12-25] MEDS: FLOMAX 0.400000000000000022 MG PO (07:39)
[2023-12-25 07:44] LABS: Blood Urea Nitrogen 10 mg/dl (9-20); Calcium 9.3 mg/dl (8.4-10.2); Carbon Dioxide 23 mmol/L (22-30); Chloride 102 mmol/L (98-107); Estimated Creatinine Clearance > 125 ml/min; Glucose 224 mg/dl (70-99); Potassium 4.1 mmol/L (3.5-5.1); Sodium 133 mmol/L (135-145); eGFR > 60.00
--- NOTE | 2023-12-25 08:52 | W.PN.HOSP.TC ---
Today's Communication/Plan
-
Discharge planning today.
Assessment / Plan
Assessment / Plan
Physical exam:
General: Well Developed, Well Nourished and No Apparent Distress
HEENT: Normocephalic, Atraumatic and Moist Mucous Membranes
Respiratory: Clear to Auscultation; Negative Wheezes, Rales or Rhonchi
Cardiac: Regular Rhythm and S1/S2
GI: Soft, Nontender and Nondistended
Musculoskeletal: No Clubbing, No Cyanosis and No Edema
Neuro: Awake, Alert and Oriented
Psych: Calm
A/P:
#Hyperglycemia, uncontrolled type 2 DM, concern for HHS. Ketonuria, 3+ glucose, corrected Na is normal 142; Beta hydroxybutyrate 1.91, AG 11, CO2 22, Glucose came down to 508 after 10 u SQ insulin. No history of insulin use.
-Off IV fluids
-HgA1C 16.9!!!!!
-TSH 0.81
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
-His blood sugars were still elevated yesterday on 12/23 and they were as high as 285 and 319 so they need to be better controlled before discharge. Discussed with patient the need for insulin upon discharge and he is agreeable although not
convinced which ones to take at home yet so we discussed several options and will revisit again tomorrow. Today on 12/25 blood sugars although elevated they are coming down and this morning blood sugar was 224.
-Yesterday added NovoLog 10 units of insulin before each meal
-Yesterday increased Lantus 20 to 25 units today
-Continue insulin sliding scale
-Monitor blood sugars over the next 24 hours and if improving plan to discharge over the next 24 hours
chest pain with sob at rest
sob improved when pt sat up
he has been receiving NS at 250 cc/hr, stopped IVF and chest pain with sob has resolved
EKG - normal
Troponin ordered, to be done shortly. Pt with significant risk factors for CAD
Discussed with cardiology today on 12/23 and they will sign off and continue to monitor as outpatient
Hyponatremia better with improved glu control
129-->132-->138--> sodium back down to 133 but blood sugars also still elevated
# Pharyngeal erythema/sore
-OP ENT consultation if not already set up by PCP (he has CT neck and chest pending OP per patient)
#Tobacco abuse-1 to 1.5 ppd for 44 years
-smoking cessation
-he declines nicotine patch at this time
#BPH
-Alfuzosin
#HLD
-Atorvastatin
DVT proph-Lovenox
Full Code
Anticipated Discharge: Today
Subjective/Interval History
-
Date of Service: December 25, 2023
Patient feels better overall today. No new complaints. He is agreeable with insulin regimen at home.
Objective Data
-
Labs:
Laboratory Results
12/25/23
06:39
Sodium 133 L
Potassium 4.1
Chloride 102
Carbon Dioxide 23
BUN 10
Creatinine 0.5 L
Glucose 224 H
Calcium 9.3
Vital Signs:
Vital Signs
Temp Pulse Resp BP Pulse Ox
98.0 F 83 18 118/56 94
12/25/23 07:10 12/25/23 07:10 12/25/23 07:10 12/25/23 07:10 12/25/23 07:10
I&O
12/24/23 12/25/23 12/26/23
06:59 06:59 06:59
Intake Total 1080 / 1080 1200 / 1200
Balance 1080 / 1080 1200 / 1200
--- NOTE | 2023-12-25 10:27 | PN.DE.MGMTRT ---
Insulin Management
- -
12/25/2023: Diabetes Management Follow up
Patient admitted w headache, dry mouth, polyuria, and dizziness.
PMH includes: HTN, HLD, Obesity, tobacco use disorder (1 pack/day greater than 40 years), chronic pain and T2DM. 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
Glucose on admission was 892, A1C 16.9%, Cr 0.5, eGFR >60. States that he previously had a glucose monitor but he is not sure if he still has it.
Met with patient at bedside, he is awake, alert & oriented able to participate in discussion regarding diabetes care. He states he has taken injections with nurse supervising and he feels comfortable. Provided printed instructions with pictures
for reference @ home.
Patient requesting DexCom. Will enter RX in ambulatory orders.
He states his GF has purchased the [employer] glucose monitor to use till he gets the DexCom.
Patient received 25 units lantus @ hs, fasting glucose 213. Will increase hs lantus to 28 units. Premeal glucose > 200 yesterday, will increase AC novolog to 14 units.
Diabetes History
- -
Type of Diabetes: 2 requiring insulin
Pre-Admission Diabetes Regimen
12/25/23
06:39
Creatinine 0.5 L
Lab Results
Hemoglobin A1c 16.9 % (4.0-5.6) H 12/23/23 05:39
Insulin Pump Settings
IP Diabetes Regimen
12/24/23 12/24/23 12/24/23
12:40 15:25 17:00
Glucose
POC Glucose 285 H 231 H 222 H
12/24/23 12/25/23 12/25/23
21:45 06:39 07:12
Glucose 224 H
POC Glucose 193 H 213 H
Meal type: Lunch
Meal type: Breakfast
Amount consumed: 100%
Amount consumed: 100%
Patient Education
[2023-12-25 11:05] VITALS: BP 112/56
--- NOTE | 2023-12-25 11:22 | W.DCSUMMARY ---
Discharge Summary
Discharge Data
Date of Admission: 12/22/23
Date of Discharge: 12/25/23
-
Pending Results: No
Hospital Course
Patient 58 years old male history of diabetes mellitus, obesity, hyperlipidemia, chronic pain, presented to the hospital generalized weakness polyuria polydipsia and dizziness and found to have glucose over 800 with a hemoglobin A1c greater than 16.
Patient also has some chest discomfort. Cardiology consulted. Cardiology felt his chest pain was atypical in presentation and no further cardiac testing was recommended and they will have him follow-up as outpatient. In terms of his blood
sugars, he was started on insulin long-acting and short acting along the way with insulin sliding scale. His blood sugars improved from when he came in. He had diabetes education and was stressed importance of tighter blood sugar control. He
agreed to insulin regimen at this time. Further adjustment of his blood sugars will be determined depending on how he does outpatient. He has been discharged on Lantus 28 units and NovoLog 14 units before each meals. Otherwise, patient is
hemodynamically stable and feels back to his baseline.
Discharge duration: 36 minutes
Discharge Plan
-
Patient Disposition: Home (Routine Discharge)
Discharge Diagnosis/Procedures: Diabetes mellitus type 2 with hyperglycemia. Chest pain. Hyperlipidemia.
Diet: Diabetic, Carb Controlled
Activity: As tolerated
Driving Restrictions: As prior to admission
Blood Work: Please PCP to order CBC, BMP within 1 week.
Referrals:
Anayeli Cherry CRNP [Specified Professional Personl] - in one to two weeks
Nevaeh Le MD [Consulting Staff] - in two to four weeks (Diabetes mellitus poorly controlled.)
Chu Hitchcock PA-C [Family Provider] - in less than 1 week
Prescriptions:
New
(DME) Dexcom G7 Sensor Device
Qty: 3 0RF
Rx Instructions:
Applu and change sensor every 10 days As Directed
E11.65
insulin aspart U-100 100 unit/mL (3 mL) Insulin Pen
14 unit SC AC 0RF
insulin glargine [Basaglar KwikPen U-100 Insulin] 100 unit/mL (3 mL) Insulin Pen
28 unit SC HS Qty: 5 0RF
Rx Instructions:
E11.65
(DME) pen needle, diabetic [BD Ultra-Fine Lacie Pen Needle] 32 gauge x 5/32' Needle
Qty: 200 0RF
Rx Instructions:
use with AC novolog and hs lantus As Directed
E11.65
metformin 500 mg tablet
500 mg PO BID Qty: 60 0RF
Continued
atorvastatin 20 mg Tablet
20 mg PO DAILY
aspirin 81 mg Tablet,Chewable
81 mg PO DAILY
alfuzosin 10 mg Tablet Extended Release 24 Hr
10 mg PO DAILY
Discontinued
meloxicam 15 mg Tablet
15 mg PO DAILY
glimepiride 2 mg Tablet
2 mg PO DAILY
Discharge Orders:
Discharge Patient (As Directed); Ordered 12/25/23
Ordered By: Bert Reno
Discharge Date and Time
Discharge Date/Time: 12/25/23 13:12
Print Language: CYPRIOT
[2023-12-25 12:01] LABS: Glucose - Point of Care 219 mg/dl (70-99)
== END 2023-12-25 13:12 | disposition home or self-care (01) ==
LOC: 3 WEST ACU 20:19
PROVIDERS: Emergency Medicine; Internal Medicine; ADMITTING PHYSICIAN Internal Medicine; ATTENDING PHYSICIAN Hospitalist; CONSULT PHYSICIAN Internal Medicine Cardiovascular Disease; EMERGENCY PHYSICIAN Student in an Organized Health Care Education/Training Program; FAMILY PHYSICIAN Physician Assistant Medical
DX: E11.65 Type 2 diabetes mellitus with hyperglycemia (principal); E78.2 Mixed hyperlipidemia; R53.1 Weakness; R51.9 Headache, unspecified; R07.89 Other chest pain; R42 Dizziness and giddiness; E87.1 Hypo-osmolality and hyponatremia; R68.2 Dry mouth, unspecified; J44.9 Chronic obstructive pulmonary disease, unspecified; E66.9 Obesity, unspecified; G89.29 Other chronic pain; F17.210 Nicotine dependence, cigarettes, uncomplicated; N40.1 Benign prostatic hyperplasia with lower urinary tract symptoms; M19.90 Unspecified osteoarthritis, unspecified site; K59.00 Constipation, unspecified; R82.4 Acetonuria; R06.02 Shortness of breath; Z79.84 Long term (current) use of oral hypoglycemic drugs; Z79.82 Long term (current) use of aspirin; Z87.828 Personal history of other (healed) physical injury and trauma; Z88.0 Allergy status to penicillin; Z79.1 Long term (current) use of non-steroidal anti-inflammatories (NSAID); Z68.36 Body mass index [BMI] 36.0-36.9, adult; Z11.52 Encounter for screening for COVID-19
CPT/HCPCS: 71046; 80048; 80053; 80061; 81003; 82010; 82805; 82947; 82962; 83036; 83721; 83735; 83930; 84443; 84484; 85025; 85027; 87502; 87811; 93005; 93306; 96360; 96372; 99285; 99406; G0378; Q9957

== ENCOUNTER → 2024-01-07 18:00 | Outpatient (REF) | payer OTHER, SELFPAY ==
--- NOTE | 2024-01-07 16:44 | PN.DIAED02 ---
Referral
DSME Class Series Code: [id number]
Referred For: Diabetes Self-Management Training
PHI Release Authorization Form Signed: Yes
Demographic
(1) Type 2 diabetes mellitus with hyperglycemia
Status: Acute Code(s): E11.65 - Type 2 diabetes mellitus with hyperglycemia
Patient's primary language-: [place]
Education: Some college
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
Hours Worked/Week: > 40 (49)
- Social
Primary Support Person: Self & significant other
Primary Care Takers: Self
Living Arrangements: Self & significant other
- Learning Methods
Preferred Method: Video
Barriers to Learning: None
Glycemic Control
- Blood Glucose Monitoring Assessment
Date: 01/07/24
Blood glucose monitoring at home: Yes
Monitor Brands: Other (Reli-on)
Frequency: >4x per day
Time: fasting, after breakfast, after lunch, after dinner, bedtime
- Hemoglobin A1c
Date: 12/22/23
A1C Percentage (%): 19.1
Medical History of Diabetes
Previous Diabetes Education: No
Previous visit with Dietitian: No
Measures
- Anthropometrics
Height: 6 ft 7 in
Actual Weight: 321 lb 2 oz
- Blood Pressure / Pulse
Blood pressure: 136/74
- Diabetes Management
Medical Management for Diabetes: Complete physical exam (10/01/2023), Dental exam (10/01/2019), Dilated eye exam (01/05/2024), Other (Covid-19 vaccine-10/01/20,03/01/21,10/15/21)
Self-Care
- Tobacco Usage
Do you now, or have you ever smoked?: Current every day smoker
Amount (per day): 1/2 pack per day (trying to reduce quantity)
- Alcohol & Drugs Usage
Drinks Alcohol: No
- Meals & Dining
Meals & Dining: Patient skips meals: No, Food Intolerance / Allergy: No, Cultural / Denominational Dietary Needs: No
Primary Food Fabrication And Layout Craftsman: Self
Primary Tobacco Grower: Self
Dining Out Frequency: Other ('0')
- Physical Activity
Physical Limitation: Yes (sore knees/back-uses single point cane at times)
Patient participates in physical Activity: Yes (Recently started since diagnosis)
Activity Types: walking
Duration: > 50 minutes (60)
Frequency: 6-7x per week (7)
Intensity: Easy
- Patient-Self Assessment
Diabetes Knowledge: Fair
Feelings About Diabetes: Acceptance
General Health: Good
Importance of Health: Extremely
Stress Level: Low
Diabetes Interferes With:: Nothing
Depression Survey Score: 0
Care Plan
- Education Needs
Patient Education Needs: Diabetes disease process, Chronic complications, Acute complications, Medication, Monitoring, Physical activity, Psychosocial Adjustment, Nutritional management, Goal setting & problem solving
Recommended Diabetes Training Program based on assessment: Outpatient Diabetes Education Program
- Plan of Care
Plan of Care:
Zach diagnosed with T2DM during recent hospitalization at , A1C 19.1%. Inpt, he was educated on use of glucometer and insulin (discharged on both Novolog and Lantus). He purchased a [employer] glucometer for cost savings and is testing FBS, 2 hr pp
every meal and HS. (results 95-165 mg/dl, the past few days). Currently taking Lantus (he believes) 30 units HS. No longer on bolus insulin. Initially Zach stated he has lost 70# since his admission to , when in fact he was 330# day of admit. He
has started walking daily and greatly reduced his CHO intake. goals established, including making a dental appointment and continue walking. Directions to classroom given.
--- NOTE | 2024-01-09 08:22 | PN.DIAED04 ---
Education Record
- Education Record
Class Attended: Class 1
DSME Class Series Code: [id number]
Instructor: Registered Nurse (Leticia Gutierres, RN, BSN, CDE)
Class Length (mins): 120
Post-Class 1 Test Score (%): 81
--- NOTE | 2024-01-09 08:23 | PN.DIAED14 ---
This is to notify you that your patient with diabetes, MARIA T RUSSO ( 1965), has enrolled in our diabetes self-management classes that are being held at [facility].
These classes will include an introduction to diabetes, diet, medication, exercise and prevention of complications. At the end of our class series, you will receive a report of your patient's participation and progress for your records.
Please contact me at the Diabetes Center, , if there is any particular information regarding your patient that might be helpful to me.
Sincerely,
CEDRIC Sheehan-, [facility]
Diabetes & Nutrition Services Director
--- NOTE | 2024-01-10 14:27 | PN.DIAED06 ---
Meal Plans - Regular
- Meal Plan
Diabetic Meal Plan Name: 2600 calories
Breakfast - Total Carbohydrate (grams): 60
Breakfast - Starch Carbohydrate: 0
Breakfast - Fruit Carbohydrate: 0
Breakfast - Milk Carbohydrate: 0
Breakfast - Nonstarchy Vegetables: Yes
Breakfast - Meat/Protein: 1
Breakfast - Fat: 2
Morning Snack - Total Carbohydrate (grams): 30
Morning Snack - Starch Carbohydrate: 0
Morning Snack - Fruit Carbohydrate: 0
Morning Snack - Milk Carbohydrate: 0
Morning Snack - Nonstarchy Vegetables: Yes
Morning Snack - Meat/Protein: 1
Morning Snack - Fat: 0
Lunch - Total Carbohydrate (grams): 60
Lunch - Starch Carbohydrate: 0
Lunch - Fruit Carbohydrate: 0
Lunch - Milk Carbohydrate: 0
Lunch - Nonstarchy Vegetables: Yes
Lunch - Meat/Protein: 4
Lunch - Fat: 2
Afternoon Snack - Total Carbohydrate (grams): 30
Afternoon Snack - Starch Carbohydrate: 0
Afternoon Snack - Fruit Carbohydrate: 0
Afternoon Snack - Milk Carbohydrate: 0
Afternoon Snack - Nonstarchy Vegetables: Yes
Afternoon Snack - Meat/Protein: 0.5
Afternoon Snack - Fat: 0
Dinner - Total Carbohydrate (grams): 60
Dinner - Starch Carbohydrate: 0
Dinner - Fruit Carbohydrate: 0
Dinner - Milk Carbohydrate: 0
Dinner - Nonstarchy Vegetables: Yes
Dinner - Meat/Protein: 4
Dinner - Fat: 2
Evening Snack - Total Carbohydrate (grams): 30
Evening Snack - Starch Carbohydrate: 0
Evening Snack - Fruit Carbohydrate: 0
Evening Snack - Milk Carbohydrate: 0
Evening Snack - Nonstarchy Vegetables: Yes
Evening Snack - Meat/Protein: 0
Evening Snack - Fat: 0
--- NOTE | 2024-01-11 12:25 | PN.DIAED04 ---
Education Record
- Education Record
Class Attended: Class 1 (pre registration 01/07/24 for outpt DSME classes starting this evening)
DSME Class Series Code: [id number]
Instructor: Registered Nurse (Leticia Gutierres, RN, BSN, [facility])
Class Curriculum:
Outpatient Diabetes Education Program:
Initial Assessment (45 minutes)
Individualized assessment
Develop personal strategies to promote health and behavior change
Development of diabetes self-management support plan
Class Length (mins): 45
Pre-Program Knowledge: Needs review / Assistance
Pre-Test Score (%): 65
Goals
- Goal 1
Being Active: Other (Continue walking daily for 30-60 minutes)
Goals To Be Evaluated: Other
- Goal 2
Healthy Eating: Follow meal plan
Goals To Be Evaluated: Follow meal plan
- Goal 3
Monitoring: Take blood sugar in the prescribed pattern
Goals To Be Evaluated: Test BG-prescribed times
== END ==
LOC: DES 18:00
PROVIDERS: ATTENDING PHYSICIAN Physician Assistant Medical
DX: E11.65 Type 2 diabetes mellitus with hyperglycemia (principal)
CPT/HCPCS: 99078

== ENCOUNTER → 2024-01-14 18:00 | Outpatient (REF) | payer OTHER, SELFPAY ==
--- NOTE | 2024-01-16 08:25 | PN.DIAED04 ---
Education Record
- Education Record
Class Attended: Class 2
[facility] Class Series Code: [id number]
Instructor: Registered Dietitian (Dorothea Albright, ELAN, LDN)
Class Length (mins): 120
== END ==
LOC: DES 18:00
PROVIDERS: ATTENDING PHYSICIAN Physician Assistant Medical
DX: E11.65 Type 2 diabetes mellitus with hyperglycemia (principal)
CPT/HCPCS: 99078

== ENCOUNTER → 2024-01-21 18:00 | Outpatient (REF) | payer OTHER, SELFPAY ==
--- NOTE | 2024-01-23 08:45 | PN.DIAED04 ---
Education Record
- Education Record
Class Attended: Class 3
DSME Class Series Code: [id number]
Instructor: Registered Dietitian (Nga Calzada, RD, LDN, CDE)
Class Length (mins): 120
Post-Class 2 & 3 Test Score (%): 81
== END ==
LOC: DES 18:00
PROVIDERS: ATTENDING PHYSICIAN Physician Assistant Medical
DX: E11.65 Type 2 diabetes mellitus with hyperglycemia (principal)
CPT/HCPCS: 99078

== ENCOUNTER → 2024-02-04 12:00 | Outpatient (REF) | payer OTHER, SELFPAY ==
--- NOTE | 2024-02-04 15:48 | PN.DIAED04 ---
Education Record
- Education Record
Class Attended: Class 4
DSME Class Series Code: [id number]
Instructor: Nurse Practitioner (CEDRIC Gaspar)
Class Length (mins): 120
Post-Class 4 Test Score (%): 67
== END ==
LOC: DES 12:00
PROVIDERS: ATTENDING PHYSICIAN Physician Assistant Medical
DX: E11.65 Type 2 diabetes mellitus with hyperglycemia (principal)
CPT/HCPCS: 99078

== ENCOUNTER → 2024-02-04 18:00 | Outpatient (REF) | payer OTHER, SELFPAY ==
--- NOTE | 2024-02-06 14:15 | PN.DIAED16 ---
This is to notify you that your patient with diabetes, MARIA T RUSSO ( 1965), has attended the entire series of Diabetes Self-Management Education Classes.
Class 1 (120 minutes): Diabetes Overview - monitoring, stress/psychosocial adjustment, support, goal setting
Class 2 (120 minutes): Meal Planning - serving sizes, menu plans
Class 3 (120 minutes): Introduction to Carbohydrate Counting, Analyzing Food Labels
Class 4 (120 minutes): Medication, Exercise and Activity
Class 5 (120 minutes): Sick Day Management, Strategies to Reduce Complications, Problem Solving, Resources
The following behavioral goals were identified:
Other
Follow meal plan
Test BG-prescribed times
A follow-up call will be made within three to six months to evaluate attainment of these goals and to check post-program Hemoglobin A1c and overall progress. All class participants are encouraged to contact me if I can be any further assistance in
learning how to manage their diabetes.
Sincerely,
CEDRIC Sheehan-, [facility]
Diabetes & Nutrition Services Director
== END ==
LOC: DES 18:00
PROVIDERS: ATTENDING PHYSICIAN Physician Assistant Medical
DX: E11.65 Type 2 diabetes mellitus with hyperglycemia (principal)
CPT/HCPCS: 99078